=== PATIENT | female | born 1990 | race Caucasian/White ===

== ENCOUNTER 2020-07-19 07:22 | Emergency (ER) | payer MEDICAID ==
[~2020-07-19] VITALS: Ht 162.6 cm; Wt 87.0 kg
[~2020-07-19 07:22] MED LIST: PREN-88 PO
[2020-07-19 07:26] VITALS: BP 116/80
[2020-07-19] MEDS ORDERED: KETOROLAC 60MG/2ML VIAL IM ONE (08:00)
[2020-07-19] MEDS ORDERED: HYDROCODONE/ACETAMINOPHEN 5/325MG TABLET PO ONE (09:00)
== END 2020-07-19 09:13 | disposition home or self-care (01) ==
LOC: ER 07:22
DX: S92.352A Displaced fracture of fifth metatarsal bone, left foot, initial encounter for closed fracture (principal); Z98.890 Other specified postprocedural states; W50.2XXA Accidental twist by another person, initial encounter; Y93.89 Activity, other specified; Y92.89 Other specified places as the place of occurrence of the external cause; Y99.8 Other external cause status
CPT/HCPCS: 29515; 73630; 81025; 96372; 99283; J1885

== ENCOUNTER 2022-02-15 22:41 | Emergency (ER) | payer MEDICAID, OTHER ==
[~2022-02-15] VITALS: Ht 162.6 cm; Wt 98.2 kg
[2022-02-16 01:39] LABS: BASOPHILS % 0.6 % (0.0-2.0); EOSINOPHILS % 2.4 % (0.0-5.0); HEMATOCRIT. 39.7 % (36.0-48.0); HEMOGLOBIN. 13.2 g/dL (12.0-16.0); LYMPHOCYTES % 28.9 % (20.0-50.0); MEAN CORPUSCULAR VOLUME 86.9 fL (81.0-99.0); MEAN PLATELET VOLUME 7.9 fl (7.4-10.4); MONOCYTES % 7.5 % (2.0-8.0); NEUTROPHILS % 60.6 % (40.0-76.0); PLATELET 276 x1000/uL (130-400); RED BLOOD CELL COUNT 4.56 mill/uL (4.2-5.4); RED CELL DISTRIBUTION WIDTH 13.6 % (11.6-14.6)
[2022-02-16 02:00] LABS: CLARITY URINE CLEAR (CLEAR); COLOR URINE YELLOW (YELLOW); KETONES URINE NEGATIVE (NEGATIVE); LEUKOCYTE ESTERASE URINE NEGATIVE (NEGATIVE); NITRITE URINE NEGATIVE (NEGATIVE); OCCULT BLOOD URINE NEGATIVE (NEGATIVE); PROTEIN URINE NEGATIVE (NEGATIVE); SPECIFIC GRAVITY URINE 1.024 (1.005-1.030); UROBILINOGEN URINE 0.2 E.U./dL (0.2-1.0)
[2022-02-16] MEDS ORDERED: IMOD MT (02:00)
[2022-02-16] MEDS ORDERED: IBUP-2029 MT (02:00)
[2022-02-16 02:05] LABS: CHLORIDE 109 mEq/L (98-107)
[2022-02-16 03:23] VITALS: BP 135/69
== END 2022-02-16 03:24 | disposition home or self-care (01) ==
LOC: ER 22:41
DX: R10.2 Pelvic and perineal pain (principal); R19.7 Diarrhea, unspecified
CPT/HCPCS: 36415; 80053; 81003; 85025; 99283

== ENCOUNTER 2023-08-22 00:34 | Emergency (ER) | payer MEDICAID, OTHER ==
[~2023-08-22] VITALS: Ht 162.6 cm; Wt 90.0 kg
[~2023-08-22 00:34] MED LIST changes: +IBUP-2029 MT; +IMOD MT
[2023-08-22 00:39] VITALS: O2SAT 98
[2023-08-22 05:10] LABS: BASOPHILS % 1.1 % (0.0-2.0); EOSINOPHILS % 2.3 % (0.0-5.0); HEMOGLOBIN. 13.5 g/dL (12.0-16.0); LYMPHOCYTES % 45.2 % (20.0-50.0); MEAN CORPUSCULAR HEMOGLOBIN 28.8 pg (28.0-32.0); MEAN CORPUSCULAR HGB CONC 33.7 g/dL (31.0-37.0); MEAN CORPUSCULAR VOLUME 85.6 fL (81.0-99.0); MEAN PLATELET VOLUME 7.6 fl (7.4-10.4); MONOCYTES % 12.9 % (2.0-8.0); NEUTROPHILS % 38.5 % (40.0-76.0); PLATELET 274 x1000/uL (130-400); RED BLOOD CELL COUNT 4.67 mill/uL (4.2-5.4); RED CELL DISTRIBUTION WIDTH 13.4 % (11.6-14.6); WHITE BLOOD COUNT 4.8 x1000/uL (4.5-11.0)
[2023-08-22 05:25] LABS: CLARITY URINE TURBID (CLEAR); COLOR URINE YELLOW (YELLOW); GLUCOSE URINE NEGATIVE (NEGATIVE); KETONES URINE NEGATIVE (NEGATIVE); LEUKOCYTE ESTERASE URINE NEGATIVE (NEGATIVE); NITRITE URINE NEGATIVE (NEGATIVE); OCCULT BLOOD URINE NEGATIVE (NEGATIVE); PROTEIN URINE NEGATIVE (NEGATIVE); SPECIFIC GRAVITY URINE 1.024 (1.005-1.030)
[2023-08-22 05:26] LABS: ALANINE AMINOTRANSFERASE 17 IU/L (10-49); ALBUMIN 4.4 g/dL (3.2-4.8); ASPARTATE AMINOTRANSFERASE 24 IU/L (<34); BILIRUBIN TOTAL 0.3 mg/dL (0.1-1.0); CALCIUM 9.3 mg/dL (8.7-10.4); CARBON DIOXIDE 30 mEq/L (21-32); CHLORIDE 106 mEq/L (98-107); CREATININE 0.7 mg/dL (0.6-1.0); GLUCOSE 103 mg/dL (70-105); POTASSIUM 3.8 mEq/L (3.5-5.1); PROTEIN TOTAL 8.1 g/dL (6.0-8.3); SODIUM 141 mEq/L (136-145); UREA NITROGEN BLOOD 9 mg/dL (9-23)
[2023-08-22 06:20] LABS: SQUAMOUS EPITHELIAL CELL URINE 1+ /lpf (RARE/1+)
[2023-08-22 06:24] LABS: RBC URINE 0-2 /hpf (0-2)
[2023-08-22 06:27] LABS: YEAST URINE 1+
[2023-08-22 06:28] LABS: BACTERIA URINE 1+
[2023-08-22] MEDS ORDERED: IBUP-2030 MT (06:38)
[2023-08-22 06:44] VITALS: BP 127/85; PULSE 76; RESP 14; TEMP 98.9
[2023-08-22] MEDS ORDERED: KETOROLAC 60MG/2ML VIAL IM ONE (06:45)
[2023-08-22 07:13] LABS: AMORPHOUS SEDIMENT URINE 1+ /lpf; WBC URINE 0-2 /hpf (0-2)
== END 2023-08-22 06:49 | disposition home or self-care (01) ==
LOC: ER 00:46
DX: R07.89 Other chest pain (principal); R00.2 Palpitations; Z98.890 Other specified postprocedural states
CPT/HCPCS: 36415; 71045; 80053; 81003; 81025; 85025; 93005; 99285

== ENCOUNTER 2025-06-01 11:54 | Emergency (ER) | payer BC ==
[~2025-06-01] VITALS: Ht 162.6 cm; Wt 90.0 kg
[~2025-06-01 11:54] MED LIST changes: +IBUP-1455 MT; -IBUP-2029 MT; +IBUP-2030 MT
[2025-06-01 12:03] VITALS: O2SAT 99
[2025-06-01] MEDS ORDERED: METH-653 MT (12:30)
[2025-06-01] MEDS: IBUPROFEN 600MG TABLET PO ONE (12:38)
[2025-06-01 12:49] VITALS: BP 112/70; PULSE 82; RESP 18; TEMP 36.8; O2SAT 100
== END 2025-06-01 12:50 | disposition home or self-care (01) ==
LOC: ER 11:54
DX: M54.50 Low back pain, unspecified (principal); Z98.890 Other specified postprocedural states; Z79.899 Other long term (current) drug therapy
CPT/HCPCS: 81025; 99283